=== PATIENT | female | born 1955 | race Caucasian/White ===

== ENCOUNTER 2025-04-03 06:41 | Day surgery (SDC) | payer MEDICARE, MEDICAID ==
[~2025-04-03] VITALS: Ht 157.5 cm; Wt 90.7 kg
[2025-04-03] VITALS (7 sets, daily range): BP systolic 131–162; BP diastolic 74–100; PULSE 68–83; RESP 14–17; TEMP 92.8–97.8; O2SAT 92–100
[~2025-04-03 06:41] MED LIST: CEPH250C PO; HYDR-3973 PO; HYDR25TA4 PO; LISI10TA27 PO; SEMA1.7P SQ
--- NOTE | 2025-04-03 07:07 | ELECTROCARDIOGRAPH REPORT ---
[facility] Test Date: 2025-04-03 Test Time: 07:02:55 Pat Name: BRYON AHLEY Department: [facility] Patient ID: [facility]-[id number] Room: Gender: F [employer] Supervisor: NELDA : 1955 Requested By: CRYS OLSEN Order Number: [id number] Reading MD: Dr. GERARDO Black Measurements Intervals [place] Rate: 74 P: 66 IA: 281 QRS: 6 QRSD: 86 T: 29 QT: 389 QTc: 432 Interpretive Statements Sinus rhythm Prolonged IA interval Probable left atrial enlargement Electronically Signed On 04-03-2025 9:38:[address] GERARDO Black Please click the below link to view image of tracing.
[2025-04-03] MEDS: famotidine 20mg tablet PO ONE (07:18)
[2025-04-03] MEDS: ringers solution, lacted 1,000 ML IV SCH (07:19)
[2025-04-03] MEDS ORDERED: propofol inj 20 ML IV ONE (08:14)
[2025-04-03] MEDS ORDERED: midazolam 1 mg/ML 2ml injection ONE (08:14)
[2025-04-03] MEDS ORDERED: simethicone 40mg/0.6ml oral drops 30ml ONE (08:25)
--- NOTE | 2025-04-03 08:50 | OPERATIVE REPORT ---
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 Procedure Performed Esophagogastroscopy Surgeon: Ander Olsen MD FACS Call Center Support Representative None Anesthesiologist: Raheel Glover Type of Anesthesia: Other Findings: Type 3 paraesophageal hernia with greater than 50% of the stomach above the hiatus with an approximately 90-180 degree volvulus No signs of ischemia Retained food contents in the herniated portion of the stomach concerning for possible gastroparesis versus possible partial obstruction Complications None Prosthetics\Implants used: Not applicable Estimated Blood Loss: None Specimen Removed: No specimens Description of Procedure: Indication: Paraesophageal hernia Consent: The patient has been informed of: #1. The nature of the procedure #2. The risk, complications, and expected benefits of the procedure. #3. Any alternatives to the procedure and the risks/benefits. Preparation: EKG pulse, blood pressure and oxygen saturation monitoring Anesthesia/sedation: As per hospital record Procedure: The patient was placed in the left lateral decubitus position. The endoscope was introduced through the mouth, advanced through the pharynx, and under direct endoscopic visualization the esophagus was intubated. The scope was passed through the esophagus with identification of the EG junction and into the stomach. EG junction was noted at about 30 cm from the incisors. It appeared relatively normal but somewhat patulous. Entry into the stomach revealed large amount of undigested food. It was difficult to navigate alongside the retained food contents, however, but ultimately I was able to identify the hiatus and transition into the intra-abdominal portion of the stomach. There appeared to be about a 90-180 degree twist/volvulus at the hiatus causing a partial obstruction. Retroflexed view revealed some gastritis. Given the anatomy, it was difficult to advance the scope towards the pylorus and I was not able to advance it through the pylorus. At this point, patient became somewhat dyspneic and given that I had obtained necessary data, I stopped the procedure. No biopsies were obtained. Findings: Oropharynx: Normal Esophagus: Normal EG junction: Normal. Noted at 30 cm Cardia: Evidence of gastritis and retained food. This was above the hiatus. Fundus: Gastritis and retained food with majority within the mediastinum. Body: Mild gastritis with partial volvulus and obstruction. Hiatal narrowing at 40 cm Antrum: Normal Pylorus: Normal Duodenal bulb: Not visualized Second portion: Not visualized IMPRESSION: -large type III paraesophageal hernia with at least 10 cm of stomach (50-60%) herniated above the mediastinum -retained food in the thoracic portion of the stomach consistent with partial obstruction but could be indicative of gastroparesis PLAN: -plan for surgical repair ANDER OLSEN MD Apr 03, 2025 08:50
== END 2025-04-03 09:30 | disposition home or self-care (01) ==
LOC: PAS 06:41
PROVIDERS: ATTEND Surgery
DX: K44.9 Diaphragmatic hernia without obstruction or gangrene (principal); K29.70 Gastritis, unspecified, without bleeding; Z79.899 Other long term (current) drug therapy; I10 Essential (primary) hypertension; G89.29 Other chronic pain; Z98.51 Tubal ligation status; Z98.890 Other specified postprocedural states; Z88.8 Allergy status to other drugs, medicaments and biological substances
CPT/HCPCS: 43235; 82948; 93005; A4615; J2250; J2704; J7120; Z7512; J7030